=== PATIENT | male | born 1940 | race Caucasian/White ===

== ENCOUNTER 2017-12-04 09:38 | Outpatient (RCR) | payer MEDICARE | END 2017-12-06 | disposition home or self-care (01) | LOC: CR 09:38 | PROVIDERS: ATTEND Internal Medicine Cardiovascular Disease | DX: Z48.812 Encounter for surgical aftercare following surgery on the circulatory system (principal); Z95.5 Presence of coronary angioplasty implant and graft | CPT/HCPCS: 93798 ==

== ENCOUNTER 2017-12-28 16:46 | Outpatient (RCR) | payer MEDICARE | END 2018-01-08 00:08 | disposition home or self-care (01) | LOC: CR 16:46 | PROVIDERS: ATTEND Internal Medicine Cardiovascular Disease | DX: Z48.812 Encounter for surgical aftercare following surgery on the circulatory system (principal); Z95.5 Presence of coronary angioplasty implant and graft | CPT/HCPCS: 93798 ==

== ENCOUNTER 2018-05-05 08:25 | Outpatient (RCR) | payer MEDICARE | END 2018-05-10 | disposition home or self-care (01) | LOC: CR 08:25 | PROVIDERS: ATTEND Internal Medicine Cardiovascular Disease | DX: Z48.812 Encounter for surgical aftercare following surgery on the circulatory system (principal); Z95.1 Presence of aortocoronary bypass graft | CPT/HCPCS: 93798 ==

== ENCOUNTER 2018-06-23 08:06 | Outpatient (RCR) | payer MEDICARE | END 2018-08-10 | disposition home or self-care (01) | LOC: CR 08:06 | PROVIDERS: ATTEND Internal Medicine Cardiovascular Disease | DX: Z48.812 Encounter for surgical aftercare following surgery on the circulatory system (principal); Z95.1 Presence of aortocoronary bypass graft | CPT/HCPCS: 93798 ==

== ENCOUNTER 2018-07-21 07:45 | Outpatient (RCR) | payer MEDICARE | END 2018-08-06 | disposition home or self-care (01) | LOC: CR3 07:45 | PROVIDERS: ATTEND Internal Medicine Cardiovascular Disease | DX: Z29.8 Encounter for other specified prophylactic measures (principal) ==

== ENCOUNTER 2018-09-10 07:26 | Outpatient (RCR) | payer MEDICARE | END 2018-09-12 | disposition home or self-care (01) | LOC: CR3 07:26 | PROVIDERS: ATTEND Internal Medicine Cardiovascular Disease | DX: Z48.812 Encounter for surgical aftercare following surgery on the circulatory system (principal); Z95.1 Presence of aortocoronary bypass graft ==

== ENCOUNTER 2018-09-22 13:08 | Outpatient (RCR) | payer MEDICARE | END 2018-10-17 | disposition home or self-care (01) | LOC: CR3 13:08 | PROVIDERS: ATTEND Internal Medicine Cardiovascular Disease | DX: Z48.812 Encounter for surgical aftercare following surgery on the circulatory system (principal); Z95.1 Presence of aortocoronary bypass graft ==

== ENCOUNTER 2018-10-27 08:11 | Outpatient (RCR) | payer MEDICARE | END 2018-11-24 | disposition home or self-care (01) | LOC: CR3 08:11 | PROVIDERS: ATTEND Internal Medicine Cardiovascular Disease | DX: Z48.812 Encounter for surgical aftercare following surgery on the circulatory system (principal); Z95.1 Presence of aortocoronary bypass graft ==

== ENCOUNTER 2021-08-05 18:55 | Emergency (ER) | payer MEDICARE ==
--- OUTSIDE RECORDS SUMMARY | 2021-08-05 18:59 | XMS REPORT | Clinical Summary ---
Author Author [facility] Organization [facility] Address Unknown Phone Unavailable Care Team Providers Care Cat Tender Name Role Phone Self, John GRAHAM PCP Source Comments Some departments are not documenting in the electronic medical record. If you d o not see the information that you expected, contact Release of Information in [facility] [employer] Information Management department at [phone] for further assistan ce in locating additional records.[facility] Allergies Comments Active Allergy Reactions Severity Noted Date Made inside of mouth blister Sulfa (Sulfonamide HIVES Medium 07/28/2017 Antibiotics) Alprazolam HIVES High 09/02/2017 Medications End Date Status Medication Sig Dispensed Refills Start Date Active aspirin EC 81 mg tablet Take 81 mg by 0 mouth daily. Take with food. Active famotidine(+) (PEPCID) 40 Take 40 mg by 0 mg tablet mouth daily. Active nitroglycerin (NITROSTAT) Place 1 25 tablet 3 0.4 mg tabletIndications: tablet under 8 Coronary artery disease tongue every involving seneca coronary 5 minutes as artery of seneca heart needed for with angina pectoris Chest Pain. (HCC), Dyslipidemia Max of 3 tablets, call 911. Active empagliflozin (JARDIANCE) Take 1 tablet 0 25 mg tab by mouth every morning. Active clopiDOGrel (PLAVIX) 75 Take 75 mg by 0 mg tablet mouth daily. Active acetaminophen (TYLENOL) Take 2 0 325 mg tablet tablets by 8 mouth every 6 hours as needed. Active metoprolol XL (TOPROL XL) Take 1 tablet 90 tablet 3 50 mg extended release by mouth 8 tablet daily. Active lisinopril (PRINIVIL; Take 5 mg by 0 ZESTRIL) 5 mg tablet mouth daily. Active metFORMIN-XR(+) Take 500 mg 0 (GLUCOPHAGE XR) 500 mg by mouth extended release tablet twice daily. Active insulin glargine (LANTUS Inject 12 0 SOLOSTAR, BASAGLAR) 100 Units under unit/mL (3 mL) injection the skin at PEN bedtime daily. Active rosuvastatin (CRESTOR) 20 Take one 90 tablet 3 04/19/201 mg tablet tablet by 9 mouth daily. Active Problems Problem Noted Date History of coronary artery bypass graft 01/21/2018 Paroxysmal atrial fibrillation 01/08/2018 Chronic combined systolic and diastolic heart failure 01/05/2018 Last Assessment & Plan: Formatting of this note might be differ ent from the original. Controlled on current regimen. No changes. Stenosis of left carotid artery 01/05/2018 Cardiogenic shock 01/05/2018 Vasogenic shock 01/05/2018 Acute blood loss anemia 01/05/2018 Metabolic acidosis 01/05/2018 Coronary artery disease involving seneca coronary art robert of seneca heart 01/01/2018 with unstable angina pectoris Overview: Formatting of this note might be differ ent from the original. Added automatically from request for oliver cobb [id number] L ast Assessment & Plan: Formatting of this note might be differ ent from the original. No current angina. Controlled on current regimen. No changes. Essential hypertension 09/02/2017 Last Assessment & Plan: Formatting of this note might be differ ent from the original. Controlled on current regimen. No changes. Dyslipidemia 08/15/2017 Last Assessment & Plan: Formatting of this note might be differ ent from the original. He had discontinued his a atorvastatin. He had had some symptoms which he thought was from the medication. I have asked him to start taking rosuva statin and have given him a prescription. CAD with angina 08/13/2017 Overview: Formatting of this note might be differ ent from the original. 08/13/[address] Marsha alba: Severe multivessel CAD with in-stent restenosis in several location s: (90% prox-RCA; 100% FOOD SERVICE AMBASSADOR mid-RCA; 50% ISRS prox LAD; 80% ISRS mid-LAD; 10 0% ISRS distal LAD; 90% ISRS proximal OM1). Normal LVEDP. Last Assessment & Plan: Formatting of this note might be differ ent from the original. He has been having some chest discomfor t with exertion - though not nearly as severe as before. We will have him return for a stress te st for further evaluation. ASHD (arteriosclerotic heart disease) 07/28/2017 Last Assessment & Plan: Formatting of this note might be differ ent from the original. Feeling well. No angina. Controlled on current regimen. No changes. We are going to repeat an echocardiogra m to re-assess his cardiac function. Other chest pain 07/28/2017 OK, old 07/28/2017 History of heart artery stent 07/28/2017 Surgical History Surgery Date Site/Laterality Comments APPENDECTOMY PROSTATE SURGERY radiofrequency ablation HX HEART CATHETERIZATION CORONARY ARTERY BYPASS 01/05/2018 N/A BYPASS GRAFT CORONARY ARTERYx, LEFT INTERNAL GRAFT MAMMARY ATYERY HARVEST, COR ONARY ENDARTERECTOMY performed by Silvestre Baca MD at [facility] PERCUTANEOUS CORONARY 08/14/2017 - N/A Percutan eous Coronary Intervention performed by INTERVENTION 08/15/2017 Mac Perry MD at [facility] PERCUTANEOUS CORONARY 08/13/2017 - N/A Possible Percutaneous Coronary Intervention INTERVENTION 08/14/2017 performed by Mac Dickinson MD at [facility] Medical History Medical History Date Comments CAD (coronary artery disease), seneca 10/2016 coronary artery History of OK (myocardial infarction) DM type 2 (diabetes mellitus, type 2) (HCC) HLD (hyperlipidemia) Dyslipidemia 08/15/2017 Dyslipidemia 08/15/2017 Family History Medical History Relation Name Comments Heart Attack Brother Heart Failure Father Relation Name Status Comments Brother Father Mother (Age 102) Social History Date Tobacco Use Types Packs/Day Years Used Never Smoker Smokeless Tobacco: Never Used Comments Alcohol Use Standard Drinks/Week No 0 (1 standard drink = 0.6 o z pure alcohol) Sex Assigned at Date Recorded Not on file Last Filed Vital Signs Reading Time Taken Comments Vital Sign 134/80 04/19/2019 9:58 AM CDT Blood Pressure 86 04/19/2019 9:51 AM CDT Pulse 36.8 C (98.3 F) 01/11/2018 11:27 AM CDT Temperature - - Respiratory Rate 98% 02/23/2018 3:16 PM CDT Oxygen Saturation - - Inhaled Oxygen Concentration 90.3 kg (199 lb) 04/19/2019 9:51 AM CDT Weight 177.8 cm (5' 10") 04/19/2019 9:51 AM CDT Height 28.55 04/19/2019 9:51 AM CDT Body Mass Index Plan of Treatment Health Maintenance Due Date Last Done Comments MEDICARE ANNUAL WELLNESS 1942 VISIT PNEUMONIA (PPSV23) 1948 VACCINE (1 of 2 - PPSV23) DTAP/TDAP VACCINES (1 - 1960 Tdap) HEPATITIS C SCREENING 1960 PHYSICAL (COMPREHENSIVE) 1960 EXAM SHINGLES RECOMBINANT 1992 VACCINE (1 of 2) INFLUENZA VACCINE 03/10/2021 Results Not on filefrom Last 3 Months Insurance Type Payer Benefit Subscriber ID Effective Phone Address Plan / Dates Group Medicare MEDICARE MEDICARE [id number] 2007- [phone] [address] [place] [address] Medicare BCBS [place] BCBS [id number] 2016-P [phone] [address] [place] [phone] [facility] (Home) [place] [phone] Advance Directives Patient Supervisor Insecticide Explanation Type Date Recorded Advance 08/13/2017 6:17 AM Directive/DPOA Date Inactivated Comments Code Status Date Activated 01/11/2018 7:40 PM Full Code 01/05/2018 10:34 AM Provider has discussed Code Status Yes w/Patient or Family? 01/01/2018 3:46 PM Full Code 01/01/2018 5:57 AM Provider has discussed Code Status No, discussion no t w/Patient or Family? necessary based on Dx 08/15/2017 12:50 PM Full Code 08/13/2017 10:42 AM Provider has discussed Code Status Yes w/Patient or Family? Care Teams Start Date End Date Cat Tender Relationship Specialty 07/22/17 John Naidu MD PCP - General Family Medicine
[2021-08-05 19:05] VITALS: BP 123/55
--- NOTE | 2021-08-05 19:05 | ED General ---
General Stated Complaint: SYNCOPAL History of Present Illness Date Seen by Provider: Aug 05, 2021 Time Seen by Provider: 19:02 Initial Comments 81-year-old male presents with some dizziness and felt like he is in a pass out. 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 Reports that he did hurt his back earlier today when he lifted a heavy dresser. EMS had been called out because the patient felt like he is having some dizziness and when they got there he felt better and refused. They then got called out a second time because he has more feelings of dizziness kind of like he was going to pass out along with some chills and generalized malaise. He denies any chest pain, cough. No reports of nausea vomiting or diarrhea or diaphoresis. Patient does report he is fully vaccinated for Covid including a recent booster shot. Allergies and Home Medications Allergies Coded Allergies: Sulfa (Sulfonamide Antibiotics) (Verified Allergy, Unknown, 08/05/21) Patient Home Medication List Home Medication List Reviewed: Yes Albuterol Sulfate (Ventolin Hfa) 18 Gm Hfa.aer.ad, 18 GM INH Q4H Prescribed by: KLAUDIA WESLEY on 08/05/212142 Budesonide (Pulmicort Flexhaler) 180 Mcg Aer.pow.ba, 180 MCG IH BID Prescribed by: KLAUDIA WESLEY on 08/05/212142 Review of Systems Review of Systems Constitutional: chills, dizziness Respiratory: No cough, No short of breath Cardiovascular: No chest pain, No palpitations, No syncope Genitourinary: no symptoms reported Musculoskeletal: back pain Skin: no symptoms reported Psychiatric/Neurological: See HPI Physical Exam Vital Signs Vital Signs - First Documented 08/05/21 08/05/21 19:05 20:06 Temp 37.0 Pulse 103 Resp 20 B/P (MAP) 123/55 (77) Pulse Ox 93 O2 Delivery Room Air O2 Flow Rate 3.00 Capillary Refill : Height, Weight, BMI Height: '" Weight: lbs. oz. kg; BMI Method: General Appearance: No Apparent Distress, WD/WN HEENT: PERRL/EOMI Respiratory: Lungs Clear, Normal Breath Sounds Cardiovascular: Regular Rate, Rhythm, No Edema Gastrointestinal: Non Tender Extremity: Normal Capillary Refill, Normal Inspection Neurologic/Psychiatric: Alert, Oriented x3, No Motor/Sensory Deficits, Normal Mood/Affect, auto fleet maintenance manager II-XII Norm as Tested Skin: Normal Color, Warm/Dry Focused Exam Lactate Level 08/05/21 20:40: Lactic Acid Level 1.47 Lactic Acid Level Laboratory Tests Test 08/05/21 20:40 Lactic Acid Level 1.47 MMOL/L (0.50-2.00) Progress/Results/Core Measures Suspected Sepsis SIRS Temperature: Pulse: Respiratory Rate: Laboratory Tests 08/05/21 19:00: White Blood Count 9.8 Blood Pressure / Mean: 08/05/21 20:40: Lactic Acid Level 1.47 Laboratory Tests 08/05/21 19:00: Creatinine 1.24, Platelet Count 212, Total Bilirubin 0.5 Results/Orders Lab Results Laboratory Tests Test 08/05/21 19:00 08/05/21 19:02 08/05/21 20:00 08/05/21 20:40 Range/Units White Blood Count 9.8 4.3-11.0 10^3/uL Red Blood Count 5.33 4.30-5.52 10^6/uL Hemoglobin 15.0 13.3-17.7 g/dL Hematocrit 46 40-54 % Mean Corpuscular Volume 86 80-99 fL Mean Corpuscular Hemoglobin 28 25-34 pg Mean Corpuscular Hemoglobin Concent 33 32-36 g/dL Red Cell Distribution Width 14.6 H 10.0-14.5 % Platelet Count 212 130-400 10^3/uL Mean Platelet Volume 11.4 9.0-12.2 fL Immature Granulocyte % (Auto) 1 % Neutrophils (%) (Auto) 88 H 42-75 % Lymphocytes (%) (Auto) 8 L 12-44 % Monocytes (%) (Auto) 3 0-12 % Eosinophils (%) (Auto) 1 0-10 % Basophils (%) (Auto) 0 0-10 % Neutrophils # (Auto) 8.6 H 1.8-7.8 X 10^3 Lymphocytes # (Auto) 0.7 L 1.0-4.0 X 10^3 Monocytes # (Auto) 0.3 0.0-1.0 X 10^3 Eosinophils # (Auto) 0.1 0.0-0.3 10^3/uL Basophils # (Auto) 0.0 0.0-0.1 10^3/uL Immature Granulocyte # (Auto) 0.1 0.0-0.1 10^3/uL Neutrophils % (Manual) 76 % Lymphocytes % (Manual) 12 % Monocytes % (Manual) 4 % Eosinophils % (Manual) 1 % Basophils % (Manual) 0 % Band Neutrophils 7 % D-Dimer 1.22 H 0.00-0.49 UG/ML Sodium Level 137 135-145 MMOL/L Potassium Level 4.2 3.6-5.0 MMOL/L Chloride Level 102 98-107 MMOL/L Carbon Dioxide Level 22 21-32 MMOL/L Anion Gap 13 5-14 MMOL/L Blood Urea Nitrogen 21 H 7-18 MG/DL Creatinine 1.24 0.60-1.30 MG/DL Estimat Glomerular Filtration Rate 56 BUN/Creatinine Ratio 17 Glucose Level 169 H 70-105 MG/DL Calcium Level 9.4 8.5-10.1 MG/DL Corrected Calcium 9.2 8.5-10.1 MG/DL Magnesium Level 1.7 1.6-2.4 MG/DL Total Bilirubin 0.5 0.1-1.0 MG/DL Aspartate Amino Transf (AST/SGOT) 16 5-34 U/L Alanine Aminotransferase (ALT/SGPT) 15 0-55 U/L Alkaline Phosphatase 83 40-136 U/L Troponin I < 0.30 <0.30 NG/ML C-Reactive Protein < 0.30 <0.50 MG/DL Total Protein 7.4 6.4-8.2 GM/DL Albumin 4.3 3.2-4.5 GM/DL Influenza Type A Antigen NEGATIVE NEGATIVE Influenza Type B Antigen NEGATIVE NEGATIVE Urine Color YELLOW Urine Clarity CLEAR Urine pH 5.5 5-9 Urine Specific [place] 1.020 1.016-1.022 Urine Protein NEGATIVE NEGATIVE Urine Glucose (UA) 3+ H NEGATIVE Urine Ketones NEGATIVE NEGATIVE Urine Nitrite NEGATIVE NEGATIVE Urine Bilirubin NEGATIVE NEGATIVE Urine Urobilinogen 0.2 < = 1.0 MG/DL Urine Leukocyte Esterase NEGATIVE NEGATIVE Urine RBC (Auto) NEGATIVE NEGATIVE Urine RBC NONE /HPF Urine WBC 2-5 /HPF Urine Squamous Epithelial Cells 0-2 /HPF Urine Crystals NONE /LPF Urine Bacteria NEGATIVE /HPF Urine Casts NONE /LPF Urine Mucus NEGATIVE /LPF Urine Culture Indicated NO Lactic Acid Level 1.47 0.50-2.00 MMOL/L My Orders Orders - WESLEY,KLAUDIA L DO Cbc With Automated Diff (08/05/21 19:05) Comprehensive Metabolic Panel (08/05/21 19:05) Ekg Tracing (08/05/21 19:05) Covid 19 Inhouse Test (08/05/21 19:05) Influenza A & B Antigens (08/05/21 19:05) Isolation Central Supply Req (08/05/21 19:05) Magnesium (08/05/21 19:05) Ua Culture If Indicated (08/05/21 19:05) Troponin I Fs (08/05/21 19:05) Chest 1 View Ap/Pa Only (08/05/21 19:05) Manual Differential (08/05/21 19:00) Crp Fs (08/05/21 19:00) Fibrin Degradation Products (08/05/21 19:58) Ibuprofen Tablet (Motrin Tablet) (08/05/21 20:03) Ct Angio Chest W (08/05/21 20:29) Lactic Acid Analyzer (08/05/21 20:35) Iohexol Injection (Omnipaque 350 Mg/Ml 1 (08/05/21 20:45) Received Contrast (Hold Metformin- Contr (08/05/21 20:45) Sodium Chloride Flush (Catheter Flush Sy (08/05/21 20:45) Ns (Ivpb) (Sodium Chloride 0.9% Ivpb Bag (08/05/21 20:45) Albuterol/Ipra Inhalation Soln (Duoneb I (08/05/21 21:45) Svn Small Volume Nebulizer (08/05/21 21:35) Medications Given in ED Current Medications Medications Dose Ordered Sig/Kasie Route Start Time Stop Time Status Last Admin Dose Admin Albuterol/ Ipratropium 3 ml ONCE ONCE INH 08/05/21 21:45 08/05/21 21:46 DC 08/05/21 21:42 3 ML Iohexol 125 ml ONCE ONCE IV 08/05/21 20:45 08/05/21 20:46 DC 08/05/21 21:19 125 ML Sodium Chloride 10 ml NEEDED PRN IV 08/05/21 20:45 08/05/21 22:12 DC 08/05/21 21:19 10 ML Sodium Chloride 100 ml ONCE ONCE IV 08/05/21 20:45 08/05/21 20:46 DC 08/05/21 21:19 80 ML Vital Signs/I&O 08/05/21 08/05/21 08/05/21 08/05/21 19:05 20:06 20:09 20:39 Temp 37.0 38.4 38.4 37.9 Pulse 103 118 Resp 20 23 B/P (MAP) 123/55 (77) 136/68 Pulse Ox 93 96 O2 Delivery Room Air Nasal Cannula O2 Flow Rate 3.00 08/05/21 22:11 Temp 38.0 Pulse 115 Resp 17 B/P (MAP) 110/65 O2 Delivery Room Air O2 Flow Rate 92.00 08/06/21 00:00 Intake Total 100 ml Balance 100 ml Capillary Refill : Progress Note : Progress Note Patient initial heart rate upon arrival was mildly tachycardic around 110s. It remained elevated in the 1 10-1 50s throughout the stay. Patient did initially require low oxygen but weaned himself off of it and maintained in the low to mid 90s. Patient did spike a fever while he was here resolved with some ibuprofen. I suspect he may have Covid or another viral illness. Patient was offered admission but would prefer to go home. I discussed with him the need to closely follow up with his primary care provider and return to the ER if symptoms worsen which he voices understanding. Patient reports that he has had some problems with his oxygen in the past and has had some breathing treatments. I will give him a breathing treatment prior to discharge and prescribe him an inhaler along with Pulmicort. Patient was otherwise stable upon discharge. ECG Initial ECG Impression Date: Aug 05, 2021 Initial ECG Impression Time: 19:06 Initial ECG Rate: 107 Initial ECG Rhythm: S.Tach Comment RBBB, LPFB, sinus tach Diagnostic Imaging Diagonstic Imaging: Xray Plain Films/CT/US/NM/MRI: chest Comments Date of Exam:08/05/21 CHEST 1 VIEW AP/PA ONLY INDICATION: Weakness. Syncope. Shortness of air COMPARISON: None FINDINGS: Single frontal view of the chest demonstrates normal heart size and pulmonary vascularity. The lungs are well aerated and clear. No large pleural effusion or pneumothorax is seen. The visualized osseous structures show no acute abnormalities. Sternotomy wires are noted IMPRESSION: 1. No acute cardiopulmonary process. Departure Impression Primary Impression: Viral syndrome Additional Impression: Heart rate fast Disposition: 01 HOME, SELF-CARE Condition: Stable Departure-Patient Inst. Referrals: SELF,DIONTE GRAHAM (PCP/Family) Primary Care Physician Patient Instructions: COVID-19 After You Have Been Vaccinated, Tachycardia (DC ), Upper Respiratory Infection ED Add. Discharge Instructions: I do have concerns that you possibly have COVID-19. You are prescribed an inhaler to use every 4 hours as needed along with a twice daily inhaler. I encourage you to follow-up with your primary care provider tomorrow or the next day at the latest. I encourage you to drink plenty of fluids. You can use Tylenol or ibuprofen as needed for any fever or chills return to the emergency room with any other concerns Scripts Budesonide (Pulmicort Flexhaler) 180 Mcg Aer.pow.ba 180 MCG IH BID, #1 EA Prov: KLAUDIA WESLEY DO 08/05/21 Albuterol Sulfate (Ventolin Hfa) 18 Gm Hfa.aer.ad 18 GM INH Q4H for Shortness of Breath, #1 EA Prov: KLAUDIA WESLEY DO 08/05/21 KLAUDIA WESLEY DO Aug 05, 2021 19:04
[2021-08-05 19:21] LABS: HEMATOCRIT 46 % (40-54); MEAN CORPUSCULAR HEMOGLOBIN 28 pg (25-34); MEAN CORPUSCULAR HGB CONC 33 g/dL (32-36); MEAN CORPUSCULAR VOLUME 86 fL (80-99); MEAN PLATELET VOLUME 11.4 fL (9.0-12.2); PLATELET COUNT 212 10^3/uL (130-400); WHITE BLOOD COUNT 9.8 10^3/uL (4.3-11.0)
[2021-08-05 19:22] LABS: BASOPHILS % (AUTO) 0 % (0-10); EOSINOPHILS # (AUTO) 0.1 10^3/uL (0.0-0.3); EOSINOPHILS % (AUTO) 1 % (0-10); LYMPHOCYTES # (AUTO) 0.7 X 10^3 (1.0-4.0); LYMPHOCYTES % (AUTO) 8 % (12-44); MONOCYTES # (AUTO) 0.3 X 10^3 (0.0-1.0); MONOCYTES % (AUTO) 3 % (0-12); NEUTROPHILS # (AUTO) 8.6 X 10^3 (1.8-7.8); NEUTROPHILS % (AUTO) 88 % (42-75)
--- NOTE | 2021-08-05 19:35 | Diagnostic Imaging Report ---
INDICATION: Weakness. Syncope. Shortness of air COMPARISON: None FINDINGS: Single frontal view of the chest demonstrates normal heart size and pulmonary vascularity. The lungs are well aerated and clear. No large pleural effusion or pneumothorax is seen. The visualized osseous structures show no acute abnormalities. Sternotomy wires are noted IMPRESSION: 1. No acute cardiopulmonary process. Dictated by: Dictated on workstation # [id number]
[2021-08-05 19:50] LABS: CHLORIDE 102 MMOL/L (98-107); POTASSIUM 4.2 MMOL/L (3.6-5.0); SODIUM 137 MMOL/L (135-145)
[2021-08-05 19:51] LABS: ALANINE AMINOTRANSFERASE 15 U/L (0-55); ALBUMIN 4.3 GM/DL (3.2-4.5); ALKALINE PHOSPHATASE 83 U/L (40-136); BILIRUBIN,TOTAL 0.5 MG/DL (0.1-1.0); BUN/CREATININE RATIO 17; CALCIUM 9.4 MG/DL (8.5-10.1); CARBON DIOXIDE 22 MMOL/L (21-32); CREATININE SERUM 1.24 MG/DL (0.60-1.30); GFR ESTIMATED 56; GLUCOSE 169 MG/DL (70-105); MAGNESIUM 1.7 MG/DL (1.6-2.4); TOTAL PROTEIN 7.4 GM/DL (6.4-8.2)
[2021-08-05 19:54] LABS: BAND NEUTROPHILS 7 %; BASOPHILS % (MANUAL) 0 %; EOSINOPHILS % (MANUAL) 1 %; LYMPHOCYTES % (MANUAL) 12 %; MONOCYTES % (MANUAL) 4 %; NEUTROPHILS % (MANUAL) 76 %
[2021-08-05] MEDS ORDERED: IBUPROFEN TABLET 200 MG TAB PO STA (20:03)
[2021-08-05 20:18] LABS: COLOR,URINE YELLOW
[2021-08-05 20:19] LABS: BACTERIA,URINE NEGATIVE /HPF; BILIRUBIN,URINE NEGATIVE (NEGATIVE); CLARITY,URINE CLEAR; GLUCOSE, URINE (UA) 3+ (NEGATIVE); KETONES,URINE NEGATIVE (NEGATIVE); LEUKOCYTE ESTERASE ,URINE NEGATIVE (NEGATIVE); NITRITE,URINE NEGATIVE (NEGATIVE); PH,URINE 5.5 (5-9); PROTEIN,URINE NEGATIVE (NEGATIVE); SQUAMOUS EPITHELIAL CELL,UR 0-2 /HPF
[2021-08-05] MEDS ORDERED: CATHETER FLUSH 10 ML SYR IV PRN (20:45)
[2021-08-05] MEDS ORDERED: NS 100 ML (IVPB) BAG IV ONE (20:45)
[2021-08-05] MEDS ORDERED: IOHEXOL 350 MG/ML 150 ML (OMNIPAQUE 350) VIAL IV ONE (20:45)
[2021-08-05] MEDS ORDERED: HOLD METFORMIN - RECEIVED CONTRAST 20 ML VIAL IV SCH (20:45)
--- NOTE | 2021-08-05 21:31 | Diagnostic Imaging Report ---
PROCEDURE: CT angiography of the chest with contrast. TECHNIQUE: Multiple contiguous axial images were obtained through the chest after uneventful bolus administration of intravenous contrast. 3D reconstructed CTA MIP acquisitions were also performed. Auto Exposure Controls were utilized during the CT exam to meet ALARA standards for radiation dose reduction. DATE: August 05, 2021. COMPARISON: Chest radiograph August 05, 2021. INDICATION: 81-year-old male, shortness of breath, tachycardia. Elevated D-dimer. FINDINGS: There is respiratory motion artifact. There are linear opacities in the right and left lower lobes as well as mild linear opacities in the dependent aspects of the lower lobes most consistent with atelectasis. There is no additional focal airspace consolidation. There is no pneumothorax. There is no pleural effusion. There is no identified pulmonary embolus. There are coronary artery calcifications. There are additional areas of atherosclerotic disease. The heart is not grossly enlarged. There is no pericardial effusion. There is no identified abnormally enlarged mediastinal, hilar, or axillary lymph node meeting CT size criteria for adenopathy. Additional evaluation of the imaged portions of the upper abdomen is unremarkable. There are multilevel degenerative changes of the spine. There are median sternotomy wires. There is no identified acute bony abnormality. IMPRESSION: CT CHEST. 1. Predominantly linear opacities in the lower lobes most consistent with atelectasis. 2. No identified pulmonary embolus or other acute cardiopulmonary abnormality. Dictated by: Dictated on workstation # [id number]
[2021-08-05] MEDS ORDERED: ALBU18HF2 INH (21:43)
[2021-08-05] MEDS ORDERED: BUDE180A IH (21:43)
[2021-08-05] MEDS ORDERED: RT-ALBUTEROL/IPRATROPIUM 3 ML (DUONEB) VIAL INH ONE (21:45)
== END 2021-08-05 22:11 | disposition home or self-care (01) ==
LOC: EDUNIT# 18:55 → ER FS 18:56
DX: B34.9 Viral infection, unspecified (principal); R00.0 Tachycardia, unspecified; Z20.822 Contact with and (suspected) exposure to COVID-19
CPT/HCPCS: 36415; 71045; 71275; 80053; 81000; 83605; 83735; 84484; 85007; 85027; 85379; 86141; 87636; 87804